=== PATIENT | female | born 1960 | race Caucasian/White ===

== ENCOUNTER 2016-12-26 20:09 | Emergency (ER) | payer BC, OTHER ==
[2016-12-26 20:25] VITALS: BMI 30.7
[2016-12-26] MEDS ORDERED: MORPHINE SULFATE INJ 2 MG IVP ONE (20:38)
[2016-12-26] MEDS ORDERED: ZOFRAN INJ 4 MG VIAL IVP ONE (20:38)
[2016-12-26] MEDS ORDERED: ZOFRAN INJ 4 MG VIAL ONE (20:39)
[2016-12-26] MEDS ORDERED: MORPHINE SULFATE INJ 2 MG ONE (20:39)
[2016-12-26 20:40] LABS: BASOPHILS # (AUTO) 0.1 X10^3/uL (0.0-0.1); BASOPHILS % (AUTO) 1.1 % (0.2-1.0); EOSINOPHILS # (AUTO) 0.2 x10^3/uL (0.0-0.2); EOSINOPHILS % (AUTO) 1.2 % (0.9-2.9); HEMATOCRIT 40.1 % (36.0-47.0); HEMOGLOBIN 13.5 g/dL (12.0-16.0); LYMPHOCYTES # (AUTO) 3.9 X10^3/uL (1.3-2.9); LYMPHOCYTES % (AUTO) 29.3 % (21.0-51.0); MEAN CORPUSCULAR HEMOGLOBIN 28.6 pg (27.0-34.0); MEAN CORPUSCULAR HGB CONC 33.7 g/dL (33.0-35.0); MEAN CORPUSCULAR VOLUME 84.9 fL (80.0-100.0); MEAN PLATELET VOLUME 8.8 fL (7.4-11.0); MONOCYTES # (AUTO) 0.8 x10^3/uL (0.3-0.8); NEUTROPHILS # (AUTO) 8.3 x10^3/uL (2.2-4.8); NEUTROPHILS % (AUTO) 62.4 % (42.0-75.0); PLATELET COUNT 251 X10^3/uL (150.0-450.0); RED BLOOD COUNT 4.72 X10^6/uL (3.5-5.4); WHITE BLOOD COUNT 13.3 X10^3/uL (3.6-10.0)
[2016-12-26 20:47] LABS: BLOOD UREA NITROGEN 18 mg/dL (7-18); CALCIUM 9.5 mg/dL (8.5-10.1); CARBON DIOXIDE 30.6 mmol/L (21-32); CHLORIDE 104 mmol/L (98-107); CREATININE 0.95 mg/dL (0.55-1.02); GLUCOSE 103 mg/dL (65-99); SODIUM 144 mmol/L (136-145); eGFR BLACK RACES > 60 (>60); eGFR NON BLACK RACES > 60 (>60)
[2016-12-26] MEDS ORDERED: K-LYTE EFFERVESCENT PO ONE (20:50)
[2016-12-26 20:51] LABS: ALANINE AMINOTRANSFERASE 89 Units/L (12-78); ALBUMIN 3.6 g/dL (3.4-5.0); ALKALINE PHOSPHATASE 94 Units/L (46-116); ASPARTATE AMINO TRANSFERASE 86 Units/L (15-37); MAGNESIUM 1.7 mg/dL (1.7-2.9); TOTAL PROTEIN 7.1 g/dL (6.4-8.2)
[2016-12-26] MEDS ORDERED: NS 1000 ML 1,000 ML IV SCH (21:00)
[2016-12-26] MEDS ORDERED: NS 1000 ML 1,000 ML ONE (21:01)
[2016-12-26 21:03] LABS: CKMB % 1.7 % (<4); CREATINE KINASE 58 Units/L (26-192); CREATINE KINASE MB < 1.0 ng/mL (0-4.0); TROPONIN I < 0.02 ng/mL (0-1.5)
--- NOTE | 2016-12-26 21:07 | DR.GENAD ---
HPI - PCP Primary Care Physician: ruthann young - Complaint/Symptoms Chief Complaint Doctors Comments: Patient states that she was outside enjoying the holiday did not do anything in excess. Chief Complaint:: pt states" i think its a bad case of indigestion but i had a sharp pain in the middle of the upper abd and it hurt all the way thru too my back." - Source History Provided: Patient - Mode of Arrival Mode of Arrival: Ambulatory - Timing Onset of Chief Complaint: 12/26/16 PMH - PMH Past Medical History: Yes Past Medical History: Hypertension, Kidney Stones Past Surgical History: Yes Surgical History: , Hysterectomy - Family History History of Family Medical Conditions: Yes Family Medical History: Diabetes Mellitus, Cancer, Coronary Artery Disease - Social History Does any household member use tobacco: Yes Alcohol Use: None Do you use any recreational Drugs:: No Lives With: Family Lives Where: Home - infectious screening In the last 2 months have you had wt loss of >10#?: NO Have you had fever, night sweats or hemotysis?: No Have you traveled outside the country in the last 6 months?: No Isolation: Standard ROS - Review of Systems Eyes: No Symptoms Reported ENTM: No Symptoms Reported Respiratoy: No Symptoms Reported Cardiovascular: No Symptoms Reported Gastrointestinal/Abdominal: No Symptoms Reported Genitourinary: No Symptoms Reported Neurological: No Symptoms Reported Musculoskeletal: No Symptoms Reported Integumentary: No Symptoms Reported Hematologic/Lymphatic: No Symptoms Reported Endocrine: No Symptoms Reported Psychiatric: No Symptoms Reported All Other Systems: Reviewed and Negative PE - Vital Signs Vitals: Temperature 97 F Pulse Rate [Apical] 82 Pulse Rate 83 Respiratory Rate 18 Blood Pressure [Right Arm] 136/73 Blood Pressure 140/83 O2 Sat by Pulse Oximetry 100 - General Limitations: No Limitations General Appearance: Alert, In No Apparent Distress, Anxious - Head Head Exam: Normal Inspection, Atraumatic - Eyes Eye exam: Normal Appearance, PERRL, EOMI - ENT ENT Exam: Normal Exam, TM's Normal Bilaterally TM/Canal Exam: Bilateral Normal Nose Exam: Normal Nose Exam Mouth Exam: Normal Inspection Throat Exam: Normal Inspection - Neck Neck Exam: Normal Inspection - Chest Chest Inspection: Normal Inspection - Respiratory Respiratory Exam: Normal Lung Sounds Bilat Respiratory Exam: Bilateral Clear to Auscultation - Cardiovascular Cardiovascular Exam: Regular Rate, Normal Rhythm, Bradycardia - Abdominal Exam Abdominal Exam: Normal Inspection Abdominal Tenderness: negative: RUQ, RLQ, LUQ, LLQ, Epigastrium, Suprapubic, Diffuse, Mild, Moderate, Severe, Other - Extremities Extremities Exam: Normal Inspection - Back Back Exam: Normal Inspection, Full ROM - Neurologic Neurological Exam: Alert, Oriented X3, CN II-XII Intact - Psychiatric Psychiatric Exam: Normal Affect - Skin Skin Exam: Warm, Dry, Intact Course - Reevaluation 1st: Improved ROR - Labs Reviewed Result Diagrams: 12/26/16 20:34 12/26/16 22:30 Laboratory: WBC 13.3 X10^3/uL (3.6-10.0) H 12/26/16 20:34 RBC 4.72 X10^6/uL (3.5-5.4) 12/26/16 20:34 Hgb 13.5 g/dL (12.0-16.0) 12/26/16 20:34 Hct 40.1 % (36.0-47.0) 12/26/16 20:34 MCV 84.9 fL (80.0-100.0) 12/26/16 20:34 MCH 28.6 pg (27.0-34.0) 12/26/16 20:34 MCHC 33.7 g/dL (33.0-35.0) 12/26/16 20:34 RDW 14.0 % (11.6-16.5) 12/26/16 20:34 Plt Count 251 X10^3/uL (150.0-450.0) 12/26/16 20:34 MPV 8.8 fL (7.4-11.0) 12/26/16 20:34 Neut % 62.4 % (42.0-75.0) 12/26/16 20:34 Lymph % 29.3 % (21.0-51.0) 12/26/16 20:34 [place] % 6.0 % (0.0-13.0) 12/26/16 20:34 Eos % 1.2 % (0.9-2.9) 12/26/16 20:34 Baso % 1.1 % (0.2-1.0) H 12/26/16 20:34 Neut # 8.3 x10^3/uL (2.2-4.8) H 12/26/16 20:34 Lymph # 3.9 X10^3/uL (1.3-2.9) H 12/26/16 20:34 [place] # 0.8 x10^3/uL (0.3-0.8) 12/26/16 20:34 Eos # 0.2 x10^3/uL (0.0-0.2) 12/26/16 20:34 Baso # 0.1 X10^3/uL (0.0-0.1) 12/26/16 20:34 Absolute Nucleated RBC 0.1 /100WBC 12/26/16 20:34 INR Target Range - 12/26/16 20:34 INR 0.91 (0.8-1.3) 12/26/16 20:34 PTT 27.5 SECONDS (22.9-36.5) 12/26/16 20:34 PTT Comment - 12/26/16 20:34 D-Dimer 194 ng/mL (0-400) 12/26/16 20:34 Sodium 146 mmol/L (136-145) H 12/26/16 22:30 Corrected Sodium TNP 12/26/16 22:30 Potassium 3.5 mmol/L (3.5-5.1) 12/26/16 22:30 Chloride 107 mmol/L (98-107) 12/26/16 22:30 Carbon Dioxide 33.2 mmol/L (21-32) H 12/26/16 22:30 BUN 19 mg/dL (7-18) H 12/26/16 22:30 Creatinine 0.97 mg/dL (0.55-1.02) 12/26/16 22:30 Est GFR (MDRD) Af Amer > 60 (>60) 12/26/16 22:30 Est GFR (MDRD) Non-Af > 60 (>60) 12/26/16 22:30 Glucose 105 mg/dL (65-99) H 12/26/16 22:30 Calcium 9.0 mg/dL (8.5-10.1) 12/26/16 22:30 Corrected Calcium TNP 12/26/16 20:34 Magnesium 1.7 mg/dL (1.7-2.9) 12/26/16 20:34 Total Bilirubin 0.30 mg/dL (0.2-1.0) 12/26/16 20:34 AST 86 Units/L (15-37) H 12/26/16 20:34 ALT 89 Units/L (12-78) H 12/26/16 20:34 Alkaline Phosphatase 94 Units/L (46-116) 12/26/16 20:34 Creatine Kinase 58 Units/L (26-192) 12/26/16 20:34 CK-MB (CK-2) < 1.0 ng/mL (0-4.0) 12/26/16 20:34 CK/CKMB % Calc 1.7 % (<4) 12/26/16 20:34 Troponin I < 0.02 ng/mL (0-1.5) 12/26/16 20:34 Total Protein 7.1 g/dL (6.4-8.2) 12/26/16 20:34 Albumin 3.6 g/dL (3.4-5.0) 12/26/16 20:34 Globulin 3.5 g/dL (2.5-4.5) 12/26/16 20:34 Albumin/Globulin Ratio 1.0 Ratio (1.1-2.1) L 12/26/16 20:34 - XRAY XRAY Interpreted by: Radiologist (Chest: The lung volume is without cardiopulmonary disease. There is no cardiomegaly) - EKG Rate: 81 [place]: Normal Rhythm: NSR - Diagnosis Discharge Problem: Hypokalemia due to loss of potassium - Discharge Plan Condition: Stable - Follow ups/Referrals Follow ups/Referrals: NFD,None [Primary Care Provider] - 3 days - Instructions
--- NOTE | 2016-12-26 21:21 | RAD ---
Single view chest series: Indication: Chest pain. Comparison: Chest series dated July 22, 2015. Findings/impression: The lung volumes are normal without acute cardiopulmonary abnormality. There is no cardiomegaly. No acute skeletal abnormality is appreciated. Reported By:
[2016-12-26] MEDS ORDERED: K-DUR TAB 20 MEQ PO ONE (21:27)
[2016-12-26] MEDS ORDERED: MICRO K EXTEN CAP 10 MEQ PO ONE (21:28)
[2016-12-26 22:42] LABS: BLOOD UREA NITROGEN 19 mg/dL (7-18); CARBON DIOXIDE 33.2 mmol/L (21-32); CHLORIDE 107 mmol/L (98-107); CREATININE 0.97 mg/dL (0.55-1.02); GLUCOSE 105 mg/dL (65-99); SODIUM 146 mmol/L (136-145); eGFR BLACK RACES > 60 (>60); eGFR NON BLACK RACES > 60 (>60)
[2016-12-26 22:49] VITALS: BP 136/73
== END 2016-12-26 23:20 | disposition home or self-care (01) ==
LOC: ER 20:20
DX: E87.6 Hypokalemia (principal)
CPT/HCPCS: 36415; 71010; 80048; 80053; 82550; 82553; 83735; 84484; 85025; 85378; 85610; 85730; 93005; 93010; 96365; 96367; 96374; 96375; 99283; A4222; J2270; J2405

== ENCOUNTER 2017-01-02 02:08 | Emergency (ER) | payer BC ==
[2017-01-02 02:20] VITALS: BP 133/80; BMI 30.7
--- NOTE | 2017-01-02 03:03 | DR.GENAD ---
HPI - PCP Primary Care Physician: JANETT - HPI Comment HPI Comment: HISTORY BELOW. - Complaint/Symptoms Chief Complaint Doctors Comments: ABDOMINAL AND BACK PAIN FOR SEVERAL HOURS. PATIENT WOKE UP FROM SLEEP WITH LOWER SUNSTERNAL CHEST PAIN RADIATING TO THE BACK. SIMILAR TO EPISODE ONE WEEK. POTASSIUM WAS SLIGHTLY LOW THEN. SHE DENIES COUGH, CONGESTION. Chief Complaint:: STOMACH PAIN AND BACK PAIN Self Treatment fo Chief Complaint: PATIENT STATES SHE WOKE UP AROUND MIDNIGHT WITH STOMACH PAIN RADIATING THROUGH TO HER BACK. SHE STATES IT IS SIMILAR TO PAINS SHE HAD APPROX ONE WEEK AGO SHE WAS SEEN IN THE ED FOR. SHE WAS TOLD AT THE TIME SHE AHD LOW POTASSIUM SO WHEN SHE WOKE UP SHE DRANK A GATORADE TO TRY TO HELP HER ELECTROLYTES AND BECAME BLOATED FEELING - Nurses notes reviewed Nurses Notes Review: Yes - Source History Provided: Patient - Mode of Arrival Mode of Arrival: Ambulatory - Timing Onset of Chief Complaint: 01/02/17 Came on: Suddenly - Duration Duration: Constant Duration: Hours - Severity Severity: Moderate PMH - PMH Past Medical History: Yes Past Medical History: Hypertension Past Surgical History: Yes Surgical History: Hysterectomy, Ortho Surgery Past Surgical History Comment: RIGHT KNEE SCOPE - Family History History of Family Medical Conditions: Yes Family Medical History: Diabetes Mellitus, Cancer, Coronary Artery Disease, Hypertension - Social History Does patient currently use any type of tobacco product: No Have you used tobacco products in the last 12 months: No Type of Tobacco Use: None Does any household member use tobacco: No Alcohol Use: None Do you use any recreational Drugs:: No Lives With: Family Lives Where: Home - infectious screening In the last 2 months have you had wt loss of >10#?: NO Have you had fever, night sweats or hemotysis?: No Have you traveled outside the country in the last 6 months?: No Isolation: Standard ROS - Review of Systems Constitutional: No Symptoms Reported, Weakness, Fatigue. negative: Chills, Diaphoresis, Fever, Loss of Appetite Eyes: No Symptoms Reported. negative: Eye Pain, Discharge ENTM: No Symptoms Reported, Nose Congestion. negative: Ear Pain, Nose Discharge , Throat Pain Respiratoy: Short of Breath. negative: Productive Cough, Non-Productive Cough, Wheezing, Hemoptysis Cardiovascular: Chest Pain Gastrointestinal/Abdominal: Abdominal Pain, Nausea. negative: Constipation, Diarrhea, Vomiting Genitourinary: No Symptoms Reported. negative: Dysuria, Frequency, Hematuria Neurological: No Symptoms Reported Musculoskeletal: No Symptoms Reported, Back Pain, Joint Pain, Joint Swelling, Muscle Pain Integumentary: No Symptoms Reported Hematologic/Lymphatic: No Symptoms Reported Endocrine: No Symptoms Reported All Other Systems: Reviewed and Negative PE - Vital Signs Vitals: Temperature 97.4 F Pulse Rate 96 Respiratory Rate 16 Blood Pressure [Right Arm] 136/73 Blood Pressure 133/80 O2 Sat by Pulse Oximetry 97 - General Limitations: No Limitations General Appearance: Alert - Head Head Exam: Normal Inspection - Eyes Eye exam: Normal Appearance - ENT ENT Exam: Normal External Ear Exam External Ear Exam: Normal External Inspection TM/Canal Exam: Bilateral Normal Nose Exam: Normal Nose Exam Mouth Exam: Normal Inspection Throat Exam: Normal Inspection - Neck Neck Exam: Normal Inspection - Chest Chest Inspection: Symmetric Chest Wall Rise - Respiratory Respiratory Exam: Normal Lung Sounds Bilat Respiratory Exam: Bilateral Clear to Auscultation - Cardiovascular Cardiovascular Exam: Regular Rate, Normal Rhythm, Normal Heart Sounds - Abdominal Exam Abdominal Exam: Normal Bowel Sounds, Soft, Tenderness Abdominal Tenderness: RUQ, LUQ, Epigastrium - Extremities Extremities Exam: Normal Inspection - Back Back Exam: Normal Inspection - Neurologic Neurological Exam: Alert, Oriented X3 - Psychiatric Psychiatric Exam: Normal Affect, Normal Mood - Skin Skin Exam: Normal Color MDM - Additional Information Additional Information Obtained From: Family - Differential Diagnosis Differential Diagnosis: ABDOMINAL PAIN, GASTRITIS, CHEST PAIN, BOWEL OBSTRUCTION Course - Treatment Treatment: SEE ORDERS. - Education/Counseling Education/Counseling: Patient, Family, Education Educated On: Treatment, Diagnosis, Needs for Follow Up ROR - Labs Reviewed Laboratory Results Reviewed?: Yes Result Diagrams: 01/02/17 03:14 01/02/17 03:14 Laboratory: WBC 11.2 X10^3/uL (3.6-10.0) H 01/02/17 03:14 RBC 4.41 X10^6/uL (3.5-5.4) 01/02/17 03:14 Hgb 12.6 g/dL (12.0-16.0) 01/02/17 03:14 Hct 37.7 % (36.0-47.0) 01/02/17 03:14 MCV 85.4 fL (80.0-100.0) 01/02/17 03:14 MCH 28.7 pg (27.0-34.0) 01/02/17 03:14 MCHC 33.6 g/dL (33.0-35.0) 01/02/17 03:14 RDW 14.0 % (11.6-16.5) 01/02/17 03:14 Plt Count 210 X10^3/uL (150.0-450.0) 01/02/17 03:14 MPV 9.2 fL (7.4-11.0) 01/02/17 03:14 Neut % 65.9 % (42.0-75.0) 01/02/17 03:14 Lymph % 19.3 % (21.0-51.0) L 01/02/17 03:14 [place] % 10.5 % (0.0-13.0) 01/02/17 03:14 Eos % 3.7 % (0.9-2.9) H 01/02/17 03:14 Baso % 0.6 % (0.2-1.0) 01/02/17 03:14 Neut # 7.4 x10^3/uL (2.2-4.8) H 01/02/17 03:14 Lymph # 2.2 X10^3/uL (1.3-2.9) 01/02/17 03:14 [place] # 1.2 x10^3/uL (0.3-0.8) H 01/02/17 03:14 Eos # 0.4 x10^3/uL (0.0-0.2) H 01/02/17 03:14 Baso # 0.1 X10^3/uL (0.0-0.1) 01/02/17 03:14 Absolute Nucleated RBC 0.0 /100WBC 01/02/17 03:14 Sodium 144 mmol/L (136-145) 01/02/17 03:14 Corrected Sodium TNP 01/02/17 03:14 Potassium 3.7 mmol/L (3.5-5.1) 01/02/17 03:14 Chloride 105 mmol/L (98-107) 01/02/17 03:14 Carbon Dioxide 30.7 mmol/L (21-32) 01/02/17 03:14 BUN 15 mg/dL (7-18) 01/02/17 03:14 Creatinine 0.85 mg/dL (0.55-1.02) 01/02/17 03:14 Est GFR (MDRD) Af Amer > 60 (>60) 01/02/17 03:14 Est GFR (MDRD) Non-Af > 60 (>60) 01/02/17 03:14 Glucose 92 mg/dL (65-99) 01/02/17 03:14 Calcium 9.4 mg/dL (8.5-10.1) 01/02/17 03:14 Corrected Calcium TNP 01/02/17 03:14 Total Bilirubin 0.40 mg/dL (0.2-1.0) 01/02/17 03:14 AST 59 Units/L (15-37) H 01/02/17 03:14 ALT 73 Units/L (12-78) 01/02/17 03:14 Alkaline Phosphatase 98 Units/L (46-116) 01/02/17 03:14 Creatine Kinase 43 Units/L (26-192) 01/02/17 03:14 CK-MB (CK-2) < 1.0 ng/mL (0-4.0) 01/02/17 03:14 CK/CKMB % Calc 2.3 % (<4) 01/02/17 03:14 Troponin I < 0.02 ng/mL (0-1.5) 01/02/17 03:14 Total Protein 6.6 g/dL (6.4-8.2) 01/02/17 03:14 Albumin 3.5 g/dL (3.4-5.0) 01/02/17 03:14 Globulin 3.1 g/dL (2.5-4.5) 01/02/17 03:14 Albumin/Globulin Ratio 1.1 Ratio (1.1-2.1) 01/02/17 03:14 Amylase 57 Units/L (25-115) 01/02/17 03:14 Lipase 118 Units/L (73-393) 01/02/17 03:14 H. pylori IgG Antibody Negative (NEGATIVE) 01/02/17 03:14 - XRAY XRAY Findings: REPORT DISCUSS WITH PATIENT. - EKG Rhythm: NSR (EKG NOTED) - Diagnosis Discharge Problem: Abdominal pain Qualifiers: Abdominal location: upper abdomen, unspecified Qualified Code(s): R10.10 - Upper abdominal pain, unspecified - Discharge Plan Disposition: HOME, SELF-CARE Condition: Stable Prescriptions: Pantoprazole Sodium 40 mg [Protonix Tab 40 mg] 40 mg PO HS #30 tab - Follow ups/Referrals Follow ups/Referrals: Benjamin Thompson [Primary Care Provider] - 01/03/17 - Instructions Instructions: Chest Pain Observation Additional Instructions: RETURN TO ED IF WORSE.
[2017-01-02] MEDS ORDERED: LEVSIN/MAALOX/LIDOC VISC PO ONE (03:07)
[2017-01-02] MEDS ORDERED: PEPCID 20 MG IV PREMIX* 20 MG/50 ML BAG IV ONE ×2 (03:07→03:25)
[2017-01-02] MEDS ORDERED: ZOFRAN INJ 4 MG VIAL IVP ONE (03:07)
[2017-01-02 03:22] LABS: BASOPHILS # (AUTO) 0.1 X10^3/uL (0.0-0.1); BASOPHILS % (AUTO) 0.6 % (0.2-1.0); EOSINOPHILS # (AUTO) 0.4 x10^3/uL (0.0-0.2); EOSINOPHILS % (AUTO) 3.7 % (0.9-2.9); HEMATOCRIT 37.7 % (36.0-47.0); HEMOGLOBIN 12.6 g/dL (12.0-16.0); LYMPHOCYTES # (AUTO) 2.2 X10^3/uL (1.3-2.9); LYMPHOCYTES % (AUTO) 19.3 % (21.0-51.0); MEAN CORPUSCULAR HEMOGLOBIN 28.7 pg (27.0-34.0); MEAN CORPUSCULAR HGB CONC 33.6 g/dL (33.0-35.0); MEAN CORPUSCULAR VOLUME 85.4 fL (80.0-100.0); MEAN PLATELET VOLUME 9.2 fL (7.4-11.0); MONOCYTES # (AUTO) 1.2 x10^3/uL (0.3-0.8); MONOCYTES % (AUTO) 10.5 % (0.0-13.0); NEUTROPHILS # (AUTO) 7.4 x10^3/uL (2.2-4.8); NEUTROPHILS % (AUTO) 65.9 % (42.0-75.0); PLATELET COUNT 210 X10^3/uL (150.0-450.0); RED BLOOD COUNT 4.41 X10^6/uL (3.5-5.4); WHITE BLOOD COUNT 11.2 X10^3/uL (3.6-10.0)
[2017-01-02] MEDS ORDERED: LEVSIN/MAALOX/LIDOC VISC ONE (03:25)
[2017-01-02] MEDS ORDERED: ZOFRAN INJ 4 MG VIAL ONE (03:25)
[2017-01-02] MEDS ORDERED: NS 250 ML IV 250 ML IV ONE (03:27)
[2017-01-02 03:40] LABS: AMYLASE 57 Units/L (25-115); CKMB % 2.3 % (<4); CREATINE KINASE 43 Units/L (26-192); CREATINE KINASE MB < 1.0 ng/mL (0-4.0); LIPASE 118 Units/L (73-393); TROPONIN I < 0.02 ng/mL (0-1.5)
[2017-01-02 03:50] LABS: ALANINE AMINOTRANSFERASE 73 Units/L (12-78); ALBUMIN 3.5 g/dL (3.4-5.0); ALKALINE PHOSPHATASE 98 Units/L (46-116); ASPARTATE AMINO TRANSFERASE 59 Units/L (15-37); BLOOD UREA NITROGEN 15 mg/dL (7-18); CALCIUM 9.4 mg/dL (8.5-10.1); CARBON DIOXIDE 30.7 mmol/L (21-32); CHLORIDE 105 mmol/L (98-107); CREATININE 0.85 mg/dL (0.55-1.02); GLUCOSE 92 mg/dL (65-99); SODIUM 144 mmol/L (136-145); TOTAL PROTEIN 6.6 g/dL (6.4-8.2); eGFR BLACK RACES > 60 (>60); eGFR NON BLACK RACES > 60 (>60)
== END 2017-01-02 05:41 | disposition home or self-care (01) ==
LOC: ER 02:08
DX: R10.11 Right upper quadrant pain (principal)
CPT/HCPCS: 36415; 80053; 82150; 82550; 82553; 83690; 84484; 85025; 86677; 93005; 93010; 96365; 96374; 96375; 99283; A4222; S0028; J2405

== ENCOUNTER → 2017-05-09 | Outpatient (CLI) | payer BC ==
--- NOTE | 2017-05-10 14:26 | CT ---
HISTORY: Low back pain Study: CT lumbar spine without contrast Comparison: Radiograph 12/24/2015, MRI 03/20/2014 Technique: Multiple axial images of the lumbar spine were obtained from the thoracolumbar junction t o the sacrum without the administration of IV contrast. Sagittal and coronal reformats were performe d and reviewed. Dose reduction techniques including Automated Exposure Control (AEC) and adjustment of mA and kV were utilized. Findings: Alignment of the lumbar spine is maintained. No evidence for acute fracture or subluxation identifie d. Vertebral body heights are preserved. There is mild multilevel lumbar spondylosis present. There are broad-based disc bulges at L3-L4 and L4-L5. There is moderate spinal canal stenosis at L4-5 as we ll as moderate bilateral foraminal stenosis. There is [id number] foraminal stenosis bilaterally at L3-L4. No focal protrusion is seen on this exam. There are moderate to advanced facet degenerativ e changes at L4-L5 and L5-S1 without listhesis. There is an exophytic left renal lesion measuring 1. 1 cm with intermediate density that could represent a complex cyst. There is a nonobstructing right r enal calculus. IMPRESSION: 1. Broad-based disc bulges at L3-L4 and L4-L5 as described with moderate spinal canal and foraminal s tenosis at L4-5. 2. Facet degenerative changes at L4-5 and L5-S1. 3. Exophytic left renal lesion measuring 1.1 cm with intermediate density that could represent a comp pieter cyst. Renal ultrasound could be performed for further evaluation. 4. Nonobstructing right renal calculus. Reported By:
== END | disposition home or self-care (01) | DRG 552 ==
LOC: RAD 11:04
PROVIDERS: ATTEND Neurological Surgery
DX: M54.16 Radiculopathy, lumbar region (principal); M54.5 Low back pain; N28.89 Other specified disorders of kidney and ureter; N20.0 Calculus of kidney
CPT/HCPCS: 72131